=== PATIENT | male | born 1955 | race African-American/Black ===

== ENCOUNTER 2017-09-05 19:44 | Emergency (ER) | payer MEDICAID, OTHER ==
[~2017-09-05 19:44] MED LIST: Sodium Chloride 0.9% 1,000 ML BAG ONE; Sodium Chloride 0.9% 500 ML BAG ONE
[2017-09-05] MEDS ORDERED: Acetaminophen 650 MG Suppository ONE (20:20)
[2017-09-05 20:38] LABS: #Basophils 0.1 thou/uL (0.0-0.2); #Eosinphils 0.2 thou/uL (0.0-0.7); #Lymphocytes 0.8 thou/uL (1.20-3.40); #Monocytes 0.7 thou/uL (0.11-0.59); #Neutrophils 4.7 thou/uL (1.40-6.50); %Basophils 1.6 % (0.0-1.0); %Eosinophils 2.8 % (0.0-10.0); %Lymphocytes 12.5 % (21.0-51.0); %Neutrophils 73.1 % (42.0-75.0); Hemoglobin 11.2 g/dL (14.0-18.0); Mean Corpuscular HGB CONC 33.5 g/dL (32.0-36.0); Mean Corpuscular Hemoglobin 31.8 pg (27.0-31.0); Mean Corpuscular Volume 95.2 fl (80.0-94.0); Mean Platelet Volume 8.3 fL (7.4-10.4); Platelet Count 159 thou/uL (130-400); RBC Distribution Width 12.3 % (11.5-14.5); Red Blood Cell (RBC) Count 3.52 mill/uL (4.70-6.10); White Blood Cell (WBC) Count 6.5 thou/uL (4.8-10.8)
[2017-09-05 20:42] LABS: Bilirubin Negative (Negative); Blood, Urine Negative (Negative); Clarity Clear (Clear); Glucose, Urine (Dipstick) 100 mg/dL (Negative); Leukocyte Negative (Negative); Nitrite Negative (Negative); Protein, Urine (Dipstick) Negative (Neg-Trace); Specific Gravity, Urine 1.015 (1.005-1.030); Urobilinogen 0.2 mg/dL (0.2-1.0)
[2017-09-05 20:52] LABS: ALT (SGPT) 12 U/L (8-55); AST (SGOT) 10 U/L (5-34); Albumin 3.3 g/dL (3.4-4.8); Alkaline Phosphatase 38 U/L (40-150); Anion Gap 15 mmol/L (10-20); BUN (Urea Nitrogen) 21 mg/dL (8.4-25.7); Bilirubin, Total 0.2 mg/dL (0.2-1.2); Calc. Creatinine Clearance 0 mL/min (70-130); Calcium 8.3 mg/dL (7.8-10.44); Carbon Dioxide 21 mmol/L (23-31); Chloride 113 mmol/L (98-107); Estimated GFR-MDRD 47; Globulin 3.6 g/dL (2.4-3.5); Glucose 175 mg/dL (80-115); Potassium 4.5 mmol/L (3.5-5.1); Protein, Total 6.9 g/dL (5.8-8.1); Sodium 144 mmol/L (136-145)
[2017-09-05] MEDS ORDERED: Oseltamivir 75 MG CAP ONE (21:02)
--- NOTE | 2017-09-05 21:18 | RAD ---
RADIOGRAPH CHEST 1 VIEW: HISTORY: 62-year-old male with fever. FINDINGS: There is no air space density, pulmonary edema, or pneumothorax. The lateral costophrenic angles are sharp. IMPRESSION: No acute pulmonary findings. demian POS: [facility]
== END 2017-09-06 00:58 | disposition short-term general hospital (02) ==
LOC: MADERS 19:44
DX: J10.1 Influenza due to other identified influenza virus with other respiratory manifestations (principal); R65.10 Systemic inflammatory response syndrome (SIRS) of non-infectious origin without acute organ dysfunction; N19 Unspecified kidney failure; F03.90 Unspecified dementia, unspecified severity, without behavioral disturbance, psychotic disturbance, mood disturbance, and anxiety; E11.9 Type 2 diabetes mellitus without complications; F20.9 Schizophrenia, unspecified; Z79.82 Long term (current) use of aspirin; Z79.4 Long term (current) use of insulin; Z79.899 Other long term (current) drug therapy
CPT/HCPCS: 36415; 51702; 71010; 80053; 81003; 83605; 85025; 87040; 87086; 96361; 96365; 96366; 96367; J1956; J3370; J7050

== ENCOUNTER 2017-09-17 18:15 | Emergency (ER) | payer OTHER ==
[~2017-09-17 18:15] MED LIST changes: -Sodium Chloride 0.9% 500 ML BAG ONE
[2017-09-17 20:07] LABS: Band 2 % (5-11); Hemoglobin 11.3 g/dL (14.0-18.0); Lymphocytes 18 % (21-51); MDiff Complete? YES; Mean Corpuscular HGB CONC 32.1 g/dL (32.0-36.0); Mean Corpuscular Hemoglobin 30.5 pg (27.0-31.0); Mean Platelet Volume 6.8 fL (7.4-10.4); Monocytes 5 % (0-10); Neutrophil 75 % (42-75); PLT Morphology Comment Appears Adequate; Platelet Count 259 thou/uL (130-400); RBC Distribution Width 11.9 % (11.5-14.5); White Blood Cell (WBC) Count 20.3 thou/uL (4.8-10.8)
[2017-09-17 20:16] LABS: ALT (SGPT) 15 U/L (8-55); AST (SGOT) 12 U/L (5-34); Albumin 3.4 g/dL (3.4-4.8); Alkaline Phosphatase 54 U/L (40-150); Anion Gap 16 mmol/L (10-20); BUN (Urea Nitrogen) 30 mg/dL (8.4-25.7); Bilirubin, Total 0.3 mg/dL (0.2-1.2); Calc. Creatinine Clearance 0 mL/min (70-130); Calcium 8.8 mg/dL (7.8-10.44); Carbon Dioxide 24 mmol/L (23-31); Chloride 103 mmol/L (98-107); Estimated GFR-MDRD 42; Globulin 4.6 g/dL (2.4-3.5); Glucose 213 mg/dL (80-115); Potassium 4.5 mmol/L (3.5-5.1); Sodium 138 mmol/L (136-145)
--- NOTE | 2017-09-17 20:20 | RAD ---
AP VIEW OF THE CHEST 09/17/17 INDICATION: 62-year-old male with fever. IMPRESSION: No acute cardiopulmonary abnormality. The examination does not appear appreciably changed from a comp arison dated September 05, 2017. POS: [facility]
[2017-09-17] MEDS ORDERED: Oseltamivir 75 MG CAP ONE (21:52)
[2017-09-17] MEDS ORDERED: Acetaminophen 500 MG TAB ONE (21:52)
[2017-09-17 21:57] LABS: Bilirubin Negative (Negative); Blood, Urine Large (Negative); Clarity Slightly Cloudy (Clear); Glucose, Urine (Dipstick) 250 mg/dL (Negative); Leukocyte Small (Negative); Nitrite Negative (Negative); Protein, Urine (Dipstick) 100 mg/dL (Neg-Trace); Specific Gravity, Urine 1.025 (1.005-1.030); Urobilinogen 0.2 mg/dL (0.2-1.0)
[2017-09-17 22:11] LABS: RBC/HPF 21-50 HPF (0-3)
[2017-09-17 22:12] LABS: Bacteria/HPF 4+ HPF (None Seen); Hyaline Casts/LPF 7-10 HYALINE CAST LPF (0-3 Hyaline); Other Casts/LPF 7-10 MIXED CASTS LPF (0-3 Hyaline); Renal Epithelial 0-3 HPF (0-3); Squamous Epithelial 0-3 HPF (0-3); Transitional Epithelial 0-3 HPF (0-3); WBC/HPF 21-50 HPF (0-3)
[2017-09-17] MEDS ORDERED: Levofloxacin 500 mg/D5W 100 ml Premix Bag ONE (22:46)
== END 2017-09-17 23:15 | disposition short-term general hospital (02) ==
LOC: MADERS 18:15
DX: A41.9 Sepsis, unspecified organism (principal); R65.20 Severe sepsis without septic shock; N17.9 Acute kidney failure, unspecified; J11.1 Influenza due to unidentified influenza virus with other respiratory manifestations; E11.9 Type 2 diabetes mellitus without complications; F03.90 Unspecified dementia, unspecified severity, without behavioral disturbance, psychotic disturbance, mood disturbance, and anxiety; E78.5 Hyperlipidemia, unspecified; I10 Essential (primary) hypertension; Z79.4 Long term (current) use of insulin; Z79.82 Long term (current) use of aspirin
CPT/HCPCS: 51702; 71010; 80053; 81003; 81015; 83605; 85025; 87040; 87077; 87086; 87186; 96361; 96365; J1956; J7050

== ENCOUNTER 2020-09-25 11:13 | Emergency (ER) | payer MEDICAID, MEDICARE ==
[~2020-09-25 11:13] MED LIST changes: +Dextrose 5 % And 0.9 % NaCl 1000 ml Bag ONE; -Sodium Chloride 0.9% 1,000 ML BAG ONE
--- NOTE | 2020-09-25 11:54 | RAD ---
EXAM: CHEST ONE VIEW HISTORY: Dyspnea. COMPARISON: 09/17/2017 FINDINGS: Cardiac silhouette is magnified by projection. Pulmonary vasculature is at the upper limits of normal , but the bronchovascular markings are accentuated due to shallow depth inspiration. There are slightly greater increased interstitial densities in the left perihilar location and to a l teddy extent on the right. These findings may be related to infectious process versus asymmetric pulmonary edema. No consolidation or definite pleural effusion is identified. No other interval arciniega e. IMPRESSION: Accentuation of bronchovascular markings due to shallow depth inspiration. However there does appear to be an increase in perihilar interstitial densities asymmetrically greater on the left which may be related to either asymmetric pulmonary edema or infectious process. Follow-up to resolution is rec ommended.
[2020-09-25 12:45] LABS: Hemoglobin 13.7 g/dL (14.0-18.0); Red Blood Cell (RBC) Count 4.81 mill/uL (4.70-6.10)
[2020-09-25 12:46] LABS: #Eosinphils 0.1 thou/uL (0.0-0.7); #Monocytes 0.7 thou/uL (0.11-0.59); #Neutrophils 7.9 thou/uL (1.40-6.50); %Basophils 0.7 % (0.0-1.0); %Eosinophils 1.2 % (0.0-10.0); %Lymphocytes 12.1 % (21.0-51.0); %Monocytes 7.3 % (0.0-10.0); %Neutrophils 78.7 % (42.0-75.0); Manual Diff?? NO; Mean Corpuscular HGB CONC 31.7 g/dL (32.0-36.0); Mean Corpuscular Hemoglobin 28.5 pg (27.0-31.0); Mean Corpuscular Volume 89.9 fL (78.0-98.0); Platelet Count 180 thou/uL (130-400); RBC Distribution Width 13.8 % (11.5-14.5)
[2020-09-25 12:47] LABS: #Basophils 0.1 thou/uL (0.0-0.2); MDiff Complete? YES
[2020-09-25 13:00] LABS: Bilirubin Negative (Negative); Blood, Urine Trace (Negative); Clarity Clear (Clear); Glucose, Urine (Dipstick) Negative (Negative); Ketone, Urine Negative (Negative); Leukocyte Negative (Negative); Nitrite Negative (Negative); Protein, Urine (Dipstick) Trace mg/dL (Neg-Trace); Urobilinogen 0.2 mg/dL (Less than 2); pH, Urine 5.5 (5.0-9.0)
[2020-09-25 13:07] LABS: Bacteria/HPF Rare-Few HPF (None Seen); RBC/HPF 0-3 HPF (0-3); Squamous Epithelial 0-3 HPF (0-3); WBC/HPF 0-3 HPF (0-3)
[2020-09-25 13:14] LABS: Anion Gap 19 mmol/L (10-20); BUN (Urea Nitrogen) 35 mg/dL (8.4-25.7); Calc. Creatinine Clearance 0 mL/min (70-130); Carbon Dioxide 25 mmol/L (23-31); Chloride 105 mmol/L (98-107); Glucose 165 mg/dL (80-115); Potassium 6.6 mmol/L (3.5-5.1); Sodium 142 mmol/L (136-145)
[2020-09-25 13:15] LABS: ALT (SGPT) 29 U/L (8-55); AST (SGOT) 47 U/L (5-34); Albumin 2.8 g/dL (3.4-4.8); Alkaline Phosphatase 66 U/L (40-110); Bilirubin, Total 0.3 mg/dL (0.2-1.2); CK (CPK) 359 U/L (30-200); Calcium 7.5 mg/dL (7.8-10.44); Globulin 5.2 g/dL (2.4-3.5); Lipase 54 U/L (8-78)
[2020-09-25] MEDS ORDERED: Sodium Chloride 0.9% 100 ML ONE (14:42)
[2020-09-25] MEDS ORDERED: cefTRIAXone\\ROCEPHIN 1 GM VIAL ONE (14:42)
[2020-09-25] MEDS ORDERED: Sodium Chloride 0.9% 250 ML 250 ML ONE (14:42)
[2020-09-25] MEDS ORDERED: Azithromycin 500 MG VIAL ONE (14:42)
[2020-09-25 14:55] LABS: Anion Gap 20 mmol/L (10-20); BUN (Urea Nitrogen) 35 mg/dL (8.4-25.7); Calc. Creatinine Clearance 0 mL/min (70-130); Calcium 8.3 mg/dL (7.8-10.44); Carbon Dioxide 27 mmol/L (23-31); Chloride 105 mmol/L (98-107); Potassium 5.3 mmol/L (3.5-5.1); Sodium 147 mmol/L (136-145)
[2020-09-25 14:57] LABS: Critical Call Chemistry NO CRITICALS SEEN; Glucose 168 mg/dL (80-115)
== END 2020-09-25 16:20 | disposition short-term general hospital (02) ==
LOC: MADERS 11:13
DX: U07.1 COVID-19 (principal); R41.0 Disorientation, unspecified; E11.649 Type 2 diabetes mellitus with hypoglycemia without coma; E78.5 Hyperlipidemia, unspecified; E78.00 Pure hypercholesterolemia, unspecified; I10 Essential (primary) hypertension; Z99.2 Dependence on renal dialysis; Z79.82 Long term (current) use of aspirin; Z79.4 Long term (current) use of insulin; Z79.899 Other long term (current) drug therapy
CPT/HCPCS: 36416; 51701; 71045; 80053; 81003; 81015; 82550; 83605; 83690; 84484; 85025; 86140; 87086; 93005; 94760; 96365; 96367; 36415-59; J0456; J0696; J3490; J7042; J7050

== ENCOUNTER 2020-10-10 02:45 | Emergency (ER) | payer MEDICARE, MEDICAID ==
[2020-10-10] MEDS ORDERED: Acetaminophen 500 MG TAB ONE (04:02)
[2020-10-10] MEDS ORDERED: Sodium Chloride 0.9% 1,000 ML ONE ×2 (04:33→05:29)
[2020-10-10 04:55] LABS: AST (SGOT) 24 U/L (5-34); Albumin 3.1 g/dL (3.4-4.8); Alkaline Phosphatase 101 U/L (40-110); Anion Gap 23 mmol/L (10-20); BUN (Urea Nitrogen) 35 mg/dL (8.4-25.7); Bilirubin, Total 0.4 mg/dL (0.2-1.2); Calc. Creatinine Clearance 0 mL/min (70-130); Calcium 9.5 mg/dL (7.8-10.44); Carbon Dioxide 23 mmol/L (23-31); Chloride 108 mmol/L (98-107); Globulin 5.1 g/dL (2.4-3.5); Glucose 286 mg/dL (80-115); Potassium 4.6 mmol/L (3.5-5.1); Protein, Total 8.2 g/dL (5.8-8.1); Sodium 149 mmol/L (136-145)
[2020-10-10] MEDS ORDERED: Sodium Chloride 0.9% 250 ML 250 ML ONE (04:56)
[2020-10-10] MEDS ORDERED: cefTRIAXone\\ROCEPHIN 1 GM VIAL ONE (04:56)
[2020-10-10] MEDS ORDERED: Sodium Chloride 0.9% 100 ML ONE (04:56)
[2020-10-10] MEDS ORDERED: Azithromycin 500 MG VIAL ONE (04:56)
[2020-10-10 05:07] LABS: ALT (SGPT) 24 U/L (8-55)
[2020-10-10 05:25] LABS: Mean Corpuscular Hemoglobin 29.8 pg (27.0-31.0); Mean Corpuscular Volume 93.2 fL (78.0-98.0); Mean Platelet Volume 6.6 fL (7.4-10.4); Platelet Count 255 thou/uL (130-400); RBC Distribution Width 13.9 % (11.5-14.5); White Blood Cell (WBC) Count 11.1 thou/uL (4.8-10.8)
[2020-10-10 05:26] LABS: Band 9 % (5-11); MDiff Complete? YES; Manual Diff?? YES; Neutrophil 64 % (42-75)
[2020-10-10 05:27] LABS: Lymphocytes 21 % (21-51); Monocytes 6 % (0-10)
[2020-10-10] MEDS ORDERED: Insulin Regular 300 UNITS/3 ML VIAL ONE (05:29)
[2020-10-10 05:31] LABS: Bilirubin Negative (Negative); Blood, Urine Negative (Negative); Clarity Slightly Cloudy (Clear); Glucose, Urine (Dipstick) 250 mg/dL (Negative); Ketone, Urine Negative (Negative); Leukocyte Negative (Negative); Nitrite Negative (Negative); Protein, Urine (Dipstick) Negative (Neg-Trace); Specific Gravity, Urine 1.025 (1.005-1.030); Urobilinogen 0.2 mg/dL (Less than 2)
--- NOTE | 2020-10-10 08:12 | RAD ---
Exam: Chest one view HISTORY:Dyspnea. Comparison: 09/26/2020 FINDINGS: Cardiac silhouette: Normal Aorta: Unremarkable Pulmonary vessels: Normal Costophrenic angles: Clear LUNGS: Limited evaluation lung parenchyma due to motion. Scattered interstitial opacities do remain. Slightly more focal infiltrate in the left lower lobe. Pneumothorax: No obvious pneumothorax Osseous abnormalities: None IMPRESSION: 1. Scattered interstitial opacities with a persistent left lower lobe infiltrate.
== END 2020-10-10 06:30 | disposition short-term general hospital (02) ==
LOC: MADERS 02:45
DX: J18.9 Pneumonia, unspecified organism (principal); R09.02 Hypoxemia; A41.9 Sepsis, unspecified organism; R65.21 Severe sepsis with septic shock; D64.9 Anemia, unspecified; E78.5 Hyperlipidemia, unspecified; E78.00 Pure hypercholesterolemia, unspecified; I12.9 Hypertensive chronic kidney disease with stage 1 through stage 4 chronic kidney disease, or unspecified chronic kidney disease; N18.30 Chronic kidney disease, stage 3 unspecified; Z99.2 Dependence on renal dialysis; E11.22 Type 2 diabetes mellitus with diabetic chronic kidney disease; E11.39 Type 2 diabetes mellitus with other diabetic ophthalmic complication; H42 Glaucoma in diseases classified elsewhere; G20 Parkinson's disease
CPT/HCPCS: 36416; 51701; 71045; 80053; 81003; 83605; 84484; 85025; 93005; 94760; 96365; 96367; 96375; J0456; J0696; J1815; J3490; J7050